=== PATIENT | male | born 1960 | race Caucasian/White ===

== ENCOUNTER 2023-05-08 07:04 | Day surgery (SDC) | payer MEDICARE, BC, OTHER ==
[~2023-05-08] VITALS: Ht 185.4 cm; Wt 125.8 kg
[~2023-05-08 07:04] MED LIST: BSS IRRIG/VANCO(10MG)/TOBRA(5MG)/EPINEPH(1:1000-0.5CC)500ML BAG-ORONLY IR ONE; CEFUROXIME 1MG/0.1ML INTRACAMERAL INJ As Ordered ONE; CYCLOPENTOLATE 1% OPHTH SOLN 2ML BTL OS SCH; EZET1TAB96 PO; JANU50TA8 PO; LIDOCAINE 1% SDV 5ML VIAL As Ordered ONE; LIDOCAINE 3.5 % 1ML OPHTH TOPICAL GEL OU ONE; LISI5TAB11 PO; OFLOXACIN 0.3 % (OCUFLOX) OPTH SOL 5ML OS ONE; PHENYLEPHRINE 10% OPHTH SOL 5ML OS PRN; PHENYLEPHRINE 2.5% OPHTH SOL 2ML OS SCH; SEMA2PEN; TROPICAMIDE 1% OPHTH SOLN 15ML OS SCH; VITA100093 PO
[2023-05-08] MEDS ORDERED: MIDAZOLAM INJ 2MG/2ML VIAL As Ordered ONE (08:43)
[2023-05-08] MEDS ORDERED: fentaNYL 100 MCG/2 ML INJECTION As Ordered ONE (08:43)
[2023-05-08 09:20] VITALS: BP 130/69; TEMP 97.8; O2SAT 96
== END 2023-05-08 09:30 | disposition home or self-care (01) ==
LOC: M SDC 07:04
PROVIDERS: ATTEND Ophthalmology
DX: H25.12 Age-related nuclear cataract, left eye (principal); I10 Essential (primary) hypertension; E11.9 Type 2 diabetes mellitus without complications; Z79.899 Other long term (current) drug therapy
CPT/HCPCS: 66984; J0697; J2250; J3010; V2788

== ENCOUNTER → 2023-06-05 | Day surgery (SDC) | payer MEDICARE, BC, OTHER ==
[~2023-06-05] VITALS: Ht 185.4 cm; Wt 126.9 kg
[~2023-06-05] MED LIST changes: +CYCLOPENTOLATE 1% OPHTH SOLN 2ML BTL OD SCH; -CYCLOPENTOLATE 1% OPHTH SOLN 2ML BTL OS SCH; +ESMOLOL INJ 100MG/10ML VIAL As Ordered ONE; +LANTINJ4 SC; +MIDAZOLAM INJ 2MG/2ML VIAL As Ordered ONE; +OFLOXACIN 0.3 % (OCUFLOX) OPTH SOL 5ML OD ONE; -OFLOXACIN 0.3 % (OCUFLOX) OPTH SOL 5ML OS ONE; +PHENYLEPHRINE 10% OPHTH SOL 5ML OD PRN; -PHENYLEPHRINE 10% OPHTH SOL 5ML OS PRN; +PHENYLEPHRINE 2.5% OPHTH SOL 2ML OD SCH; -PHENYLEPHRINE 2.5% OPHTH SOL 2ML OS SCH; -SEMA2PEN; +SEMA2PEN SQ; +TROPICAMIDE 1% OPHTH SOLN 15ML OD SCH; -TROPICAMIDE 1% OPHTH SOLN 15ML OS SCH; +fentaNYL 100 MCG/2 ML INJECTION As Ordered ONE
[2023-06-05 09:39] VITALS: BP 117/87; TEMP 97.5; O2SAT 96
== END | disposition home or self-care (01) ==
LOC: M SDC 07:34
PROVIDERS: ATTEND Ophthalmology
DX: E11.36 Type 2 diabetes mellitus with diabetic cataract (principal); H25.11 Age-related nuclear cataract, right eye; I10 Essential (primary) hypertension; E10.40 Type 1 diabetes mellitus with diabetic neuropathy, unspecified; M10.9 Gout, unspecified; Z79.899 Other long term (current) drug therapy; Z79.4 Long term (current) use of insulin
CPT/HCPCS: 66984; 92015; J0697; J1805; J2250; J3010; V2788